=== PATIENT | female | born 1955 | race Caucasian/White ===

== ENCOUNTER 2025-04-15 05:57 | Emergency (ER) | payer MEDICARE, OTHER ==
[~2025-04-15] VITALS: Ht 165.1 cm; Wt 60.3 kg
[2025-04-15 05:59] VITALS: BP 122/68; PULSE 75; RESP 15; TEMP 96.8; O2SAT 99
--- NOTE | 2025-04-15 06:20 | Physician Documentation ---
HPI ~ General Chief Complaint: Medication Request Stated Complaint: RABIES VACCINE Time Seen by MD: 06:17 OK to notify your PCP?: Yes Primary Medical Doctor: JUAJNO MCINTOSH Source: patient, RN/MD, RN notes reviewed, old records Mode of Arrival: POV Exam Limitations: no limitations History of Present Illness HPI Comments Patient is here for 4th rabies vaccine. Patient was exposed to a bat which re cently came back negative nevertheless was told to finish the series. Patient has no complaints otherwise in good health no fevers chills. The bat was found in the house with some blood on it but nobody had any direct bites. Patient is otherwise in good health. Medication Reconciliation Allergies: Coded Allergies: Sulfa (Sulfonamide Antibiotics) (Verified Allergy, Severe, SWELLING, 04/15/25) Past Medical History Past Medical History: Hypothyroidism Past Surgical History: , other (Lumpectomy breast, eye surgery) Smoking Status: Never smoker Alcohol Use: Occasionally Drug Use: none Review of Systems All Other Systems at this time: Reviewed and Negative Physical Exam Physical Exam Vital Signs: RN Vital Signs have been reviewed: Yes, Temperature: 96.8, Source: Temporal, Heart Rate: 75, Respiratory Rate: 15, BP: 122/68, Pulse Oximetry: 99, Weight: 60.300 Physical Exam General: The patient is well developed, well nourished, nontoxic appearing and is in no acute distress. Skin: [place], warm and dry with no rashes. HEENT: Head was normocephalic and atraumatic. Eyes - pupils equal, round, reactive to light and accommodation. Extraocular movements were intact. n The mouth and oropharynx were clear with moist mucous membranes. There were no pharyngeal exudates or erythema. Neck: Supple and nontender. Chest: Clear to auscultation bilaterally without wheezes, rales or rhonchi. Heart: Rate regular and rhythmic. S1, S2. No murmurs. Abdomen: Soft, nontender and nondistended. Positive bowel sounds. Extremities: No cyanosis, clubbing or edema. The patient moves all extremities. Neurologic: Motor sensory grossly intact Psychologic: The patient was oriented to person, place and time. The patient demonstrated appropriate judgement and insight. Progress Results/Orders Reviewed/noted all lab results: Yes Results/Orders Completed Orders - OMEGA MEI MD Rabies Vaccine ([facility])/Pf (Rabavert Rabie (04/15/25 06:25) Vital Signs 04/15/25 05:59 Temp 96.8 Pulse 75 Resp 15 B/P (MAP) 122/68 Pulse Ox 99 Re-Evaluation Re-Evaluation : Re-Evaluation: Unchanged Progress Patient was seen and examined. Patient received rabies them and vaccine was then discharged home. Departure Disposition: 01 HOME / SELF CARE / HOMELESS Impression: Primary Impression: Rabies, need for prophylactic vaccination against Condition: Stable Discharge Instructions: Medical Screening Exam Referrals: NO PRIMARY CARE PROVIDER (PCP) Education Educated: Patient Educated regarding: diagnosis Signature Scribe Signature: No scribed Attestation: The note accurately reflects work and decisions made by me.Omega Mei MD 04/15/25 06:18 OMEGA MEI MD Apr 15, 2025 06:20
[2025-04-15] MEDS: rabies vaccine (PCEC)/PF 2.5 unit kit IMVAC ONE (06:57)
== END 2025-04-15 07:06 | disposition home or self-care (01) ==
LOC: ER 05:58
DX: Z20.3 Contact with and (suspected) exposure to rabies (principal); Z23 Encounter for immunization; E03.9 Hypothyroidism, unspecified; Z88.2 Allergy status to sulfonamides
CPT/HCPCS: 90675; 99281; G0008; 90471